=== PATIENT | female | born 1945 | race Caucasian/White ===

== ENCOUNTER 2016-08-26 06:13 | Day surgery (SDC) | payer OTHER ==
[2016-08-19 16:16] LABS: HEMATOCRIT 39.5 % (36.0-48.0); HEMOGLOBIN 12.8 g/dL (12.0-16.0)
[2016-08-19 16:37] LABS: BUN (BLOOD UREA NITROGEN) 17 MG/DL (6-23); CHLORIDE, SERUM 104 MMOL/L (96-112); CO2 (CARBON DIOXIDE) 31 MMOL/L (24-34); CREATININE 0.63 MG/DL (0.55-1.02); GFR AFRICAN AMERICAN 105 ML/MIN (>=60); GFR NON AFRICAN AMERICAN 90 ML/MIN (>=60); GLUCOSE, SERUM 89 MG/DL (60-99); POTASSIUM, SERUM 4.3 MMOL/L (3.5-5.3); SODIUM, SERUM 145 MMOL/L (135-148)
[~2016-08-26 06:13] MED LIST: ALIGN4 MG PO; COUMADIN7.5 MG; DULERA 200 MCG/13 GM INH; FLONASE NAS; LEVOTHYROXIN125 MCG PO; LIPITOR20 PO; MULTIPLE VIT PO; MULTIVITAMI1 PO; PREDNISONE2.5 MG PO; PRESERVISION A1 EACH PO; PROAIR HFA INH; RELA5 PO; SPIRIVA INH; ZANTAC150 MG
[2016-08-26 06:26] LABS: INTERNATIONAL NORMAL RATI 0.9 UNITS (-); PROTIME (NOT ORD) 12.5 SEC (12.0-14.5)
== END 2016-08-26 23:59 | disposition home or self-care (01) ==
LOC: MSC 06:13
PROVIDERS: Surgery Plastic and Reconstructive Surgery
PROC: 0W020ZZ Alteration of Face, Open Approach (ICD-10-PCS; principal; 2016-08-26 07:15)
PROC: 0J013ZZ Alteration of Face Subcutaneous Tissue and Fascia, Percutaneous Approach (ICD-10-PCS; 2016-08-26 07:15)
DX: H02.409 Unspecified ptosis of unspecified eyelid (principal); I35.0 Nonrheumatic aortic (valve) stenosis; E03.9 Hypothyroidism, unspecified; E78.00 Pure hypercholesterolemia, unspecified; J45.909 Unspecified asthma, uncomplicated; J44.9 Chronic obstructive pulmonary disease, unspecified; K44.9 Diaphragmatic hernia without obstruction or gangrene; G25.81 Restless legs syndrome; A49.02 Methicillin resistant Staphylococcus aureus infection, unspecified site; M19.90 Unspecified osteoarthritis, unspecified site; Z86.718 Personal history of other venous thrombosis and embolism; Z91.09 Other allergy status, other than to drugs and biological substances; Z98.51 Tubal ligation status; Z98.82 Breast implant status; Z96.1 Presence of intraocular lens; Z98.41 Cataract extraction status, right eye; Z98.42 Cataract extraction status, left eye; Z79.52 Long term (current) use of systemic steroids; Z79.01 Long term (current) use of anticoagulants; Z79.51 Long term (current) use of inhaled steroids; Z79.899 Other long term (current) drug therapy; Z98.890 Other specified postprocedural states
CPT/HCPCS: 80048; 85014; 85018; 85610; 93005; A9270-GY; C1713; J0690; J2250; J2405; J2710; J3010; J3370